=== PATIENT | female | born 1985 | race Caucasian/White ===

== ENCOUNTER → 2017-03-04 | Outpatient (CLI) | payer BC ==
--- NOTE | 2017-03-04 12:12 | RAD ---
6 views of the cervical spine 03/04/2017 2:00 AM Indication: CERVICALGIA Comparison: None Findings: There is no radiographic evidence of acute fracture or alignment abnormality. Vertebral body heights and disc spaces are preserved. Atlantoaxial articulation remains intact. No prevertebral soft tissue edema is seen. Impression: No radiographic evidence of acute osseous abnormality
== END | disposition home or self-care (01) ==
LOC: PMG 11:38
PROVIDERS: ATTEND Physician Assistant Medical
DX: M54.2 Cervicalgia (principal)
CPT/HCPCS: 72050

== ENCOUNTER → 2018-05-14 | Outpatient (CLI) | payer BC ==
--- NOTE | 2018-05-14 13:26 | RAD ---
Examination: Ultrasound pelvis HISTORY: History of pelvic pain, abdominal pain COMPARISON: None available FINDINGS: The uterus measures 10.5 x 5.0 x 2.6 cm. Small amount of free fluid identified in the cul-de-sac. The right ovary measures 4.6 x 2.2 x 3.0 cm. The left ovary measures 2.8 x 3.2 x 2.1 cm. There is a 2.5 cm cyst identified in the right ovary. Echogenicity identified in the uterus likely intrauterine contraceptive device. Few nabothian cysts identified. Blood flow identified in the right and left ovaries. IMPRESSION: 1. 2.5 cm cyst right ovary. 2. Intrauterine contraceptive device in place Electronically signed by: Joey Zelaya MD (05/14/2018 1:23 PM) [id number]
--- NOTE | 2018-05-14 13:37 | RAD ---
Examination: Ultrasound abdomen complete HISTORY: History of abdominal pain COMPARISON: None available FINDINGS: The visualized pancreas grossly appears unremarkable. The visualized aorta, IVC within normal limits of dimension. The gallbladder is mildly distended. Echogenicities identified within the gallbladder, which are nonmobile, likely gallstones. The right lobe of the liver measures 15.4 cm. The echogenicity of the liver grossly appears unremarkable. The right kidney measures 10.3 x 4.8 x 4.3 cm. The left kidney measures 10.5 x 4.9 x 4.1 cm. The spleen is within normal. The common bile duct measures 4 mm in transverse dimension. IMPRESSION: 1. Few echogenicities identified in the gallbladder likely gallstones. Electronically signed by: Joey Zelaya MD (05/14/2018 1:34 PM) [id number]
== END | disposition home or self-care (01) ==
LOC: US 11:51
PROVIDERS: ATTEND Registered Nurse
DX: N83.201 Unspecified ovarian cyst, right side (principal); K82.8 Other specified diseases of gallbladder
CPT/HCPCS: 76700; 76830; 76856

== ENCOUNTER → 2019-01-03 | Outpatient (CLI) | payer BC ==
--- NOTE | 2019-01-03 09:30 | RAD ---
Transabdominal sonography of the pelvis Clinical indications: Pelvic pain. FINDINGS: The uterus is anteverted in position. The longitudinal and AP and transverse dimensions of the uterus are 10.2 cm and 4.6 cm and 5.6 cm respectively. The endometrial canal is not abnormally thickened. It measures 7 mm in thickness. An IUD is seen within the endometrial canal consistent with proper positioning. No fibroid or mass of the uterus is seen. Nabothian cyst of the cervix is seen. The left ovary is normal and measures 2.7 cm and 2.0 cm and 3.0 cm in size. Color Doppler flow is seen within the left ovary. The right ovary is normal and measures 2.7 cm and 1.3 cm and 2.3 cm in size. Color Doppler flow is seen within the right ovary. No adnexal mass is seen. A small amount of free fluid is seen within the cul-de-sac. IMPRESSION: Small amount of free fluid within the cul-de-sac. IUD in proper position. Both ovaries are normal and no adnexal mass is seen. Electronically signed by: Javy Alfonso MD (01/03/2019 9:27 AM) [facility]
== END | disposition home or self-care (01) ==
LOC: PMG 08:38
PROVIDERS: ATTEND Physician Assistant Medical
DX: N88.8 Other specified noninflammatory disorders of cervix uteri (principal); Z97.5 Presence of (intrauterine) contraceptive device
CPT/HCPCS: 76856

== ENCOUNTER → 2019-01-11 | Outpatient (CLI) | payer BC ==
--- NOTE | 2019-01-11 10:00 | RAD ---
EXAM: Abdomen and pelvis CT without intravenous contrast. HISTORY: Left lower quadrant pain. TECHNIQUE: Computed tomographic images of the abdomen and pelvis were obtained without contrast. Multiplanar reformatting was performed.. *One or more of the following individualized dose reduction techniques were utilized for this examination: 1. Automated exposure control. 2. Adjustment of the mA and/or kV according to patient size. 3. Use of iterative reconstruction technique. COMPARISON: None. FINDINGS: Evaluation of the lower thorax demonstrates no infiltrate or pleural effusion. No hepatic lesion is seen. The gallbladder is surgically absent. There is prominence of the pancreatic head which is likely physiologic. No pancreatic mass is seen on this noncontrast exam. The spleen and adrenal glands are unremarkable. The kidneys are unremarkable. The urinary bladder is unremarkable. The appendix is upper normal in caliber. There are no secondary findings to suggest appendicitis. There is moderate colonic stool. There is no evidence of bowel obstruction. There is a ventriculoperitoneal shunt terminating within the left hemipelvis. There is an intrauterine contraceptive device within the and atrial cavity. There is moderate pelvic free fluid, a nonspecific finding. There is a tampon within the vagina. There are multiple ovarian follicles. There is no lymphadenopathy. IMPRESSION: 1. Moderate pelvic free fluid. This can be physiologic in a premenopausal female. 2. Ventriculoperitoneal shunt terminating within the left hemipelvis. Electronically signed by: Enedina Huggins MD (01/11/2019 9:56 AM) [id number]
== END | disposition home or self-care (01) ==
LOC: PMG 09:05
PROVIDERS: ATTEND Physician Assistant Medical
DX: R10.32 Left lower quadrant pain (principal); Z97.5 Presence of (intrauterine) contraceptive device
CPT/HCPCS: 74176

== ENCOUNTER → 2019-08-29 | Outpatient (CLI) | payer BC ==
--- NOTE | 2019-08-29 12:18 | RAD ---
CT scan of the abdomen and pelvis without contrast 08/29/2019 CLINICAL HISTORY: Lower abdominal pain. TECHNIQUE: Unenhanced contiguous, 3 mm axial sections were obtained through the abdomen and pelvis. One or more of the following individualized dose reduction techniques were utilized for this study: 1. Automated exposure control. 2. Adjustment of the mA and/or kV according to patient size. 3. Use of iterative reconstruction technique. FINDINGS: Comparison study is dated 01/11/2019. Images through the lung bases demonstrate minimal dependent subsegmental atelectasis bilaterally. The liver, spleen, pancreas, adrenal glands and kidneys are within normal limits. No renal or ureteral calculus is seen. There is no evidence of obstruction of either collecting system. The abdominal aorta tapers normally. Surgical clips are seen within the gallbladder fossa consistent with a cholecystectomy. Air and stool are seen throughout the colon. MANAGEMENT NURSE RN shunt tubing is again noted unchanged in position. The appendix is well-visualized and is within normal limits. Images through the pelvis demonstrate the urinary bladder distended with urine. An IUD is again noted in place. A 2.8 cm rounded low-attenuation structure is seen in the region of the left ovary which may represent a left ovarian cyst. A small amount of free fluid is seen within the pelvis. A punctate calcification is seen within the right pelvis consistent with a phlebolith. No abnormal fluid collection is noted. Minimal S-shaped curvature of the thoracolumbar spine is seen. IMPRESSION: 2.8 cm low-attenuation structure is seen in the left adnexa which may represent a left ovarian cyst. A small amount of free fluid is seen within the pelvis. Electronically signed by: Sadiq Choi MD (08/29/2019 12:15 PM) [id number]
== END ==
LOC: PMG 09:04
PROVIDERS: ATTEND Physician Assistant Medical
DX: J98.11 Atelectasis (principal); M25.851 Other specified joint disorders, right hip; Z90.49 Acquired absence of other specified parts of digestive tract
CPT/HCPCS: 74176

== ENCOUNTER → 2019-09-07 | Outpatient (CLI) | payer BC ==
[2019-09-07 12:08] LABS: BASO % 0 % (0-3); EOS # 0.1 x10^3/uL (0.0-0.7); EOS % 2 % (0-3); HEMATOCRIT 41.5 % (36.0-47.0); HEMOGLOBIN 14.1 g/dL (12.0-15.5); LYMPH # 1.4 x10^3/uL (1.0-4.8); LYMPH % 25 % (24-48); MEAN CORPUSCULAR HEMOGLOBIN 32 pg (25-35); MEAN CORPUSCULAR HGB CONC 34 g/dL (31-37); MEAN CORPUSCULAR VOLUME 93 fL (79-100); MONO # 0.4 x10^3/uL (0.0-1.1); MONO % 7 % (0-9); NEUT # 3.5 x10^3uL (1.8-7.7); NEUT % 65 % (31-73); PLATELET COUNT 352 x10^3/uL (140-400); RED BLOOD COUNT 4.47 x10^6/uL (3.50-5.40); RED CELL DISTRIBUTION WIDTH 12.7 % (11.5-14.5); WHITE BLOOD COUNT 5.4 x10^3/uL (4.0-11.0)
[2019-09-07 12:21] LABS: ALBUMIN 4.2 g/dL (3.4-5.0); ALBUMIN/GLOBULIN RATIO 1.2 (1.0-1.7); GFR 63.5; TOTAL BILIRUBIN 0.4 mg/dL (0.2-1.0); TOTAL PROTEIN 7.6 g/dL (6.4-8.2)
[2019-09-08 05:08] LABS: HEMOGLOBIN A1C 4.8 % (4.8-5.6)
[2019-09-08 07:10] LABS: FSH 2.3 mIU/mL (.); LUTEINIZING HORMONE 4.5 mIU/mL (.); PROLACTIN 12.7 ng/mL (4.8-23.3); TESTOSTERONE TOTAL 26 ng/dL (8-48)
[2019-09-09 09:08] LABS: INSULIN LEVEL 12.4 uIU/mL (2.6-24.9)
== END | disposition home or self-care (01) ==
LOC: LAB 10:23
PROVIDERS: ATTEND Nurse Practitioner Women's Health
DX: N92.6 Irregular menstruation, unspecified (principal)
CPT/HCPCS: 36415; 80053; 82627; 83001; 83002; 83036; 83525; 84146; 84403; 84443; 85025